=== PATIENT | female | born 1950 | race Caucasian/White ===

== ENCOUNTER 2021-08-12 15:56 | Emergency (ER) | payer MEDICARE, OTHER | END 2021-08-12 19:04 | disposition home or self-care (01) | LOC: ERS 15:56 | DX: S89.92XA Unspecified injury of left lower leg, initial encounter (principal); W22.8XXA Striking against or struck by other objects, initial encounter ==

== ENCOUNTER 2021-08-26 12:38 | Outpatient (CLI) | payer MEDICARE, OTHER | END 2021-08-26 12:39 | disposition home or self-care (01) | LOC: SCSMRI 12:38 | PROVIDERS: ATTEND Orthopaedic Surgery | DX: M23.91 Unspecified internal derangement of right knee (principal); S83.282A Other tear of lateral meniscus, current injury, left knee, initial encounter; S86.912A Strain of unspecified muscle(s) and tendon(s) at lower leg level, left leg, initial encounter; M25.462 Effusion, left knee ==

== ENCOUNTER 2021-09-09 08:51 | Outpatient (CLI) | payer MEDICARE, OTHER ==
[2021-09-09 09:55] LABS: #Basophils 0.1 10x3/uL (0.0-0.2); #Eosinphils 0.3 10x3/uL (0.0-0.5); #Monocytes 0.7 10x3/uL (0.0-1.1); #Neutrophils 5.6 10x3/uL (1.5-8.4); %Basophils 1.1 % (0.0-2.0); %Eosinophils 3.1 % (0.0-6.0); %Lymphocytes 19.7 % (18.0-47.0); %Monocytes 8.2 % (0.0-10.0); %Neutrophils 67.4 % (40.0-75.0); Hemoglobin 13.2 g/dL (12.0-15.5); Mean Corpuscular HGB CONC 31.3 g/dL (32.0-36.0); Mean Corpuscular Hemoglobin 28.9 pg (27.0-33.0); Mean Corpuscular Volume 92.5 fl (81.6-98.3); Mean Platelet Volume 9.5 fl (7.4-10.4); Platelet Count 363 10x3/uL (150-450); RBC Distribution Width 13.3 % (11.5-14.5); Red Blood Cell (RBC) Count 4.56 10x6/uL (3.90-5.03); White Blood Cell (WBC) Count 8.3 10x3/uL (3.5-10.5)
[2021-09-09 10:09] LABS: Anion Gap 13 mmol/L (10-20); BUN (Urea Nitrogen) 18 mg/dL (9.8-20.1); Calc. Creatinine Clearance 0 mL/min (70-130); Calcium 9.4 mg/dL (7.8-10.44); Carbon Dioxide 28 mmol/L (23-31); Chloride 103 mmol/L (98-107); Glucose 93 mg/dL (80-115); Potassium 4.3 mmol/L (3.5-5.1); Sodium 140 mmol/L (136-145)
[2021-09-09 18:40] LABS: SARS-CoV-2 PCR by NAA Not Detected (NotDetected)
== END 2021-09-09 08:52 | disposition home or self-care (01) ==
LOC: LABBT 08:51
PROVIDERS: ATTEND Orthopaedic Surgery
DX: Z01.818 Encounter for other preprocedural examination (principal); T84.84XA Pain due to internal orthopedic prosthetic devices, implants and grafts, initial encounter; S83.282A Other tear of lateral meniscus, current injury, left knee, initial encounter; Z20.822 Contact with and (suspected) exposure to COVID-19
CPT/HCPCS: 71046; 80048; 85025; 93005; U0003; U0005; 93010

== ENCOUNTER 2021-09-12 07:01 | Day surgery (SDC) | payer MEDICARE, OTHER ==
[2021-09-08 10:46] VITALS: BMI 21.6
[2021-09-12] MEDS ORDERED: Bupivacaine PF 0.5% 30 ML VIAL ONE (07:48)
[2021-09-12] MEDS ORDERED: PROPOFOL 20 ML ONE (07:48)
[2021-09-12] MEDS ORDERED: Lidocaine 2% w/Epinephrine 1:200K 20 ML VIAL ONE (07:48)
[2021-09-12] MEDS ORDERED: Fentanyl 250 MCG/5 ML VIAL ONE (08:58)
[2021-09-12] MEDS ORDERED: ceFAZolin 2 GM/Dextrose 50 ML IVPB ONE (09:11)
[2021-09-12] MEDS ORDERED: Ketorolac Tromethamine 30 MG/ML VIAL ONE (09:25)
[2021-09-12] MEDS ORDERED: Dexamethasone 20 MG/5 ML VIAL ONE (09:25)
[2021-09-12] MEDS ORDERED: Lidocaine 1% PF 5 ML VIAL ONE (09:25)
[2021-09-12] MEDS ORDERED: PROPOFOL 200 MG/20 ML VIAL ONE (09:25)
[2021-09-12] MEDS ORDERED: ePHEDrine 50 MG/ML VIAL ONE (09:25)
[2021-09-12] MEDS ORDERED: Ondansetron PF 4 MG/2 ML Vial ONE (09:25)
[2021-09-12] MEDS ORDERED: Bupivacaine 0.25% HCL 30 ML VIAL ONE (09:48)
[2021-09-12] MEDS ORDERED: HYDROcodone/Acetaminophen 5/325 mg Tablet ONE (11:57)
== END 2021-09-12 13:18 | disposition home or self-care (01) ==
LOC: SDC 07:01
PROVIDERS: ATTEND Orthopaedic Surgery
PROC: 0SBD4ZZ Excision of Left Knee Joint, Percutaneous Endoscopic Approach (ICD-10-PCS; principal; 2021-09-12)
PROC: 0YPB0YZ Removal of Other Device from Left Lower Extremity, Open Approach (ICD-10-PCS; 2021-09-12)
DX: S83.282A Other tear of lateral meniscus, current injury, left knee, initial encounter (principal); T84.84XA Pain due to internal orthopedic prosthetic devices, implants and grafts, initial encounter
CPT/HCPCS: 76000; J0690; J2704; J3010; S0020